=== PATIENT | male | born 1970 | race Caucasian/White ===

== ENCOUNTER → 2016-06-20 | Outpatient (CLI) | payer OTHER ==
[2016-06-20 11:53] LABS: HEMOGLOBIN 14.2 gm/dl (14.0-17.5); RED BLOOD COUNT 4.86 M/UL (4.20-5.50); WHITE BLOOD COUNT 6.4 K/UL (4.5-11.0)
[2016-06-20 12:07] LABS: BUN/CREATININE RATIO 32 (0-10)
== END ==
LOC: LAB 10:33
PROVIDERS: Internal Medicine
DX: K75.81 Nonalcoholic steatohepatitis (NASH) (principal)
CPT/HCPCS: 36415; 80053; 80061; 82607; 82746; 83036; 85027

== ENCOUNTER 2020-04-20 12:58 | Inpatient (IN) | payer OTHER ==
[~2020-04-20] VITALS: Ht 170.2 cm; Wt 136.1 kg
[~2020-04-20 12:58] MED LIST: AUGMENTIN 875-1 EACH PO; NAPROSYN500 MG PO
[2020-04-20 15:14] LABS: HEMOGLOBIN 14.8 gm/dl (14.0-17.5); RED BLOOD COUNT 5.05 M/UL (4.20-5.50); WHITE BLOOD COUNT 10.1 K/UL (4.5-11.0)
[2020-04-20 15:39] LABS: BUN/CREATININE RATIO 25 (0-10)
[2020-04-20] MEDS ORDERED: DOXYCYCLINE MO100 MG PO (18:34)
[2020-04-20] MEDS ORDERED: ATORVASTATIN CA20 MG PO (18:35)
[2020-04-20] MEDS ORDERED: BASAGLAR K100 UNIT/1 SQ (18:36)
[2020-04-20] MEDS ORDERED: OMEPRAZOLE20 MG PO (18:38)
[2020-04-20] MEDS ORDERED: NORVASC5 MG PO (18:39)
[2020-04-20] MEDS ORDERED: FORTAMET1000 MG PO (18:40)
[2020-04-20] MEDS ORDERED: AMARYL 2MG TABLE2 MG PO (18:40)
[2020-04-20] MEDS ORDERED: LISINOPRIL-HCT1 EAC1 PO (18:41)
[2020-04-21 03:31] LABS: HEMOGLOBIN 13.2 gm/dl (14.0-17.5); RED BLOOD COUNT 4.6 M/UL (4.20-5.50); WHITE BLOOD COUNT 11.1 K/UL (4.5-11.0)
[2020-04-21 03:48] LABS: BUN/CREATININE RATIO 31 (0-10)
[2020-04-22 05:41] LABS: HEMOGLOBIN 13.6 gm/dl (14.0-17.5); RED BLOOD COUNT 4.69 M/UL (4.20-5.50); WHITE BLOOD COUNT 9.5 K/UL (4.5-11.0)
[2020-04-22 05:56] LABS: BUN/CREATININE RATIO 33 (0-10)
[2020-04-23 03:54] LABS: HEMOGLOBIN 13.6 gm/dl (14.0-17.5); RED BLOOD COUNT 4.74 M/UL (4.20-5.50); WHITE BLOOD COUNT 8.6 K/UL (4.5-11.0)
[2020-04-23 04:12] LABS: BUN/CREATININE RATIO 25 (0-10)
[2020-04-25 04:23] LABS: HEMOGLOBIN 13.5 gm/dl (14.0-17.5); RED BLOOD COUNT 4.71 M/UL (4.20-5.50); WHITE BLOOD COUNT 8.7 K/UL (4.5-11.0)
[2020-04-25 04:44] LABS: BUN/CREATININE RATIO 25 (0-10)
[2020-04-26 03:51] LABS: BUN/CREATININE RATIO 26 (0-10)
[2020-04-26] MEDS ORDERED: LEVOFLOXACIN750 MG PO (07:38)
[2020-04-26] MEDS ORDERED: BACTRIM DS TAB1 EACH PO (07:38)
[2020-04-26] MEDS ORDERED: FLORASTOR250 MG PO (07:38)
[2020-04-26] MEDS ORDERED: SANTYL OINT 3030 GM TOP (07:38)
[2020-04-26] MEDS ORDERED: HYDROCODON-ACE1 EAC2 PO (07:38)
[2020-04-26] MEDS ORDERED: HUMALOG 10100 UNITS/ SC (07:38)
[2020-04-26 07:54] LABS: HEMOGLOBIN 12.6 gm/dl (14.0-17.5); RED BLOOD COUNT 4.37 M/UL (4.20-5.50); WHITE BLOOD COUNT 8.8 K/UL (4.5-11.0)
[2020-04-26] MEDS ORDERED: ATORVASTATIN CA20 MG PO (07:54)
[2020-04-26] MEDS ORDERED: LISINOPRIL-HCT1 EAC1 PO (07:54)
[2020-04-26] MEDS ORDERED: OMEPRAZOLE20 MG PO (07:54)
[2020-04-26] MEDS ORDERED: BASAGLAR K100 UNIT/1 SQ (07:54)
[2020-04-26] MEDS ORDERED: FORTAMET1000 MG PO (07:54)
[2020-04-26] MEDS ORDERED: NORVASC5 MG PO (07:54)
--- NOTE | 2020-04-26 12:20 | NUR ---
PT REFUSEDFLU SHOT NOTED
== END 2020-04-26 11:56 | disposition home or self-care (01) | DRG 264 ==
LOC: ER1 12:58 → CDU 17:10 → MED SURG 4 17:10
PROVIDERS: Internal Medicine; Physician Assistant; ADMIT Internal Medicine
PROC: 0JBQ0ZZ Excision of Right Foot Subcutaneous Tissue and Fascia, Open Approach (ICD-10-PCS; principal; 2020-04-24)
DX: E11.52 Type 2 diabetes mellitus with diabetic peripheral angiopathy with gangrene (principal); I96 Gangrene, not elsewhere classified; E11.621 Type 2 diabetes mellitus with foot ulcer; E11.65 Type 2 diabetes mellitus with hyperglycemia; Z79.4 Long term (current) use of insulin; L03.031 Cellulitis of right toe; Z98.84 Bariatric surgery status; Z83.3 Family history of diabetes mellitus; Z82.49 Family history of ischemic heart disease and other diseases of the circulatory system; E66.01 Morbid (severe) obesity due to excess calories; F32.9 Major depressive disorder, single episode, unspecified; F41.9 Anxiety disorder, unspecified; Z91.19 Patient's noncompliance with other medical treatment and regimen; E87.6 Hypokalemia
CPT/HCPCS: 36415; 73630; 73721; 80048; 80053; 80202; 82962; 83036; 83605; 85025; 85652; 86140; 87040; 87070; 87205; 90471; 90715; 93926; 96365; 96366; 96367; 96372; 96375; 99284; J1650; J2270; J2543; J3370; J7050; J7070; U0002

== ENCOUNTER → 2020-06-12 | Outpatient (CLI) | payer OTHER ==
[~2020-06-12] MED LIST changes: +AMARYL 2MG TABLE2 MG PO; +ATORVASTATIN CA20 MG PO; +BACTRIM DS TAB1 EACH PO; +BASAGLAR K100 UNIT/1 SQ; +DOXYCYCLINE MO100 MG PO; +FLORASTOR250 MG PO; +FORTAMET1000 MG PO; +HUMALOG 10100 UNITS/ SC; +HYDROCODON-ACE1 EAC2 PO; +LEVOFLOXACIN750 MG PO; +LISINOPRIL-HCT1 EAC1 PO; +NORVASC5 MG PO; +OMEPRAZOLE20 MG PO; +SANTYL OINT 3030 GM TOP
== END ==
LOC: EMI 15:49
DX: M86.8X7 Other osteomyelitis, ankle and foot (principal); S91.301D Unspecified open wound, right foot, subsequent encounter; R60.0 Localized edema; D75.89 Other specified diseases of blood and blood-forming organs
CPT/HCPCS: 73718

== ENCOUNTER 2020-12-30 21:05 | Emergency (ER) | payer OTHER ==
[2020-12-30 22:19] LABS: HEMOGLOBIN 12.3 gm/dl (14.0-17.5); RED BLOOD COUNT 4.51 M/UL (4.20-5.50); WHITE BLOOD COUNT 11.4 K/UL (4.5-11.0)
[2020-12-30 22:41] LABS: BUN/CREATININE RATIO 21 (0-10)
== END 2020-12-31 08:39 | disposition other institution (70) ==
LOC: ER1 21:05
PROVIDERS: Physician Assistant Medical
DX: N47.1 Phimosis (principal); N13.8 Other obstructive and reflux uropathy; E11.9 Type 2 diabetes mellitus without complications; I10 Essential (primary) hypertension; E78.5 Hyperlipidemia, unspecified; Z79.4 Long term (current) use of insulin; Z20.822 Contact with and (suspected) exposure to COVID-19
CPT/HCPCS: 51702; 80053; 82962; 85025; 96374; 96375; 99284; J1885; J2270; J2405; U0002

== ENCOUNTER 2021-10-01 17:36 | Emergency (ER) | payer OTHER ==
[2021-10-01] MEDS ORDERED: IBUPROFEN800 MG PO (20:29)
[2021-10-01] MEDS ORDERED: CYCLOBENZAPRINE10 MG PO (20:29)
== END 2021-10-01 21:10 | disposition home or self-care (01) ==
LOC: ER1 17:36
DX: S16.1XXA Strain of muscle, fascia and tendon at neck level, initial encounter (principal); I10 Essential (primary) hypertension; E11.9 Type 2 diabetes mellitus without complications; Z23 Encounter for immunization; V49.40XA Driver injured in collision with unspecified motor vehicles in traffic accident, initial encounter; W22.10XA Striking against or struck by unspecified automobile airbag, initial encounter
CPT/HCPCS: 70450; 71045; 72125; 72128; 72131; 73090; 73560; 90471; 90715; 99284